=== PATIENT | male | born 1955 | race Caucasian/White ===

== ENCOUNTER → 2017-06-06 | Outpatient (CLI) | payer MEDICARE ==
--- NOTE | 2017-06-06 16:12 | KCIC ---
EXAM: Cervical spine MRI without contrast. HISTORY: Left upper extremity. TECHNIQUE: Multiplanar, multisequence magnetic resonance imaging of the cervical spine was performed without contrast. COMPARISON: None. FINDINGS: There is minimal retrolisthesis of C3 on C4, mild anterolisthesis of C4 on C5 and C7 on T1, and mild retrolisthesis of C5 on C6 and C6 on C7. There is degenerative endplate remodeling with disc space narrowing and osteophytosis primarily at C5-C6 and C6-C7. No spinal cord lesion is seen. The skull base and posterior fossa are unremarkable. There is mild diffusely decreased T1 marrow signal intensity. At C2-C3, there is moderate right facet arthropathy. There is minimal right foraminal stenosis. At C3-C4, there is a right posterior lateral predominant disc bulge and endplate osteophytosis. There is a right greater than left uncovertebral arthropathy. There is slight buckling of the ligamentum flavum. There is moderate right and mild left foraminal stenosis. At C4-C5, there is a left posterior lateral predominant disc bulge and endplate osteophytosis. There is marked to severe left and mild right facet arthropathy. There is left greater than right uncovertebral arthropathy. There is moderate to severe left foraminal stenosis. At C5-C6, there is a disc bulge and endplate osteophytosis. There is mild left facet arthropathy. There is bilateral uncovertebral arthropathy. There is buckling of the ligamentum flavum. There is moderate to severe right and severe left foraminal stenosis. At C6-C7, there is a disc bulge and endplate osteophytosis. There is bilateral uncovertebral arthropathy. There is mild bilateral foraminal stenosis. IMPRESSION: 1. Multilevel degenerative changes of the cervical spine, described in detail above. This results in suspected minimal right foraminal stenosis at C2-C3, moderate right and mild left foraminal stenosis at C3-C4, moderate to severe left foraminal stenosis at C4-C5, moderate to severe right and severe left foraminal stenosis at C5-C6, and mild bilateral foraminal stenosis at C6-C7. 2. Minimal and mild multilevel listhesis, degenerative in etiology. 3. Mild diffusely decreased T1 marrow signal intensity. This can be seen with etiologies such as anemia, a cigarette smoking history and obesity. This is not within limits to suggest a suspicious marrow infiltrative process. Electronically signed by: Cece Barbosa MD (06/06/2017 4:08 PM) [facility]
== END | disposition home or self-care (01) ==
LOC: KCIC MRI 15:19
PROVIDERS: ATTEND Physician Assistant Medical
DX: M48.02 Spinal stenosis, cervical region (principal); D64.9 Anemia, unspecified; E66.9 Obesity, unspecified; F17.210 Nicotine dependence, cigarettes, uncomplicated
CPT/HCPCS: 72141

== ENCOUNTER → 2019-12-29 | Outpatient (CLI) | payer MEDICARE, MEDICAID ==
--- NOTE | 2019-12-29 11:57 | KCIC ---
MRI Lumbar Spine without contrast History: Lumbar back pain, radiculopathy, shooting right hip and leg pain for 6 to 7 months Technique: Multiplanar, multi sequential noncontrast MR imaging was performed of the lumbar spine. Comparison: None Findings: There is some motion degradation. Lumbar vertebral body stature is mostly preserved other than small Schmorl's nodes such as superiorly of L3 and inferiorly of L1 and also at the L3-4 level. There is fairly advanced degenerative disc disease variably at L1-2, L2-3, L3-4, and L5-S1 and to lesser degree at L4-5. There is mild levoscoliosis centered near L3. There is very mild right lateral subluxation L2 relative to L3 and L1 relative to L2. There is variable endplate edema greatest at L1-2 and to lesser degree at L2-3 and L5-S1 likely reactive/degenerative in etiology. There is also edema associated with the right L2-3 facet articulation without associated defined fluid collection. 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 T12-L1: There is a small extrusion extending slightly above the intervertebral disc space about 2 to 3 mm AP without significant neural impingement or spinal stenosis. Neural foramina are adequate. L1-L2: There is disc osteophyte complex and bulge, also likely superimposed broad protrusion and possible component of shallow extrusion extending slightly below the intervertebral disc space up to about 4 mm AP. There is indentation upon the ventral thecal sac greater in the left lateral recess, moderate left lateral recess stenosis at and just below the intervertebral disc space with contact of the descending left L2 nerve root. There is mild buckling of the ligamentum flavum. There is mild posterior narrowing of the right neural foramen by facet, left neural foramen not significantly narrowed. L2-L3: There is mild prominence of posterior epidural fat centrally, mild buckling of the ligamentum flavum greater on the right, and fairly severe right facet degenerative change. There is minimal disc osteophyte complex and superimposed bulge. There is ivnq-qh-ezmbabhq narrowing of the far right lateral recess, very mild narrowing of the far left lateral recess. Left neural foramen is adequate. There is moderate to severe narrowing of the right neural foramen primarily from posteriorly by facet although also disc osteophyte complex inferiorly. L3-L4: There is disc osteophyte complex, mild indentation upon the ventral thecal sac somewhat greater in the right lateral recess. There is minimal buckling of the ligamentum flavum and right facet hypertrophic change. There is mild narrowing of the far lateral recesses bilaterally greater on the right. Left neural foramen is overall adequate. There is mild narrowing of the right neural foramen, disc osteophyte complex near the undersurface proximal extraforaminal right L3 nerve root without significant displacement. L4-L5: There is disc osteophyte complex and bulge, indentation upon the ventral thecal sac greatest centrally and in the left lateral recess. There is mild bilateral facet degenerative change. There is moderate narrowing of the far left lateral recess with contact of the descending left L5 nerve root, mild narrowing of the far right lateral recess. There is moderate to severe narrowing of the left neural foramen from facet and disc osteophyte complex. Right neural foramen is overall adequate. L5-S1: There is minimal disc osteophyte complex, near the ventral surfaces descending S1 nerve roots greater on the left without significant posterior displacement. Spinal canal is not significantly narrowed. There is moderate to severe narrowing of the left neural foramen by disc osteophyte complex and facet, disc osteophyte complex also contacting the extraforaminal left L5 nerve root. Right neural foramen is overall adequate. Impression: 1. There is multilevel lumbar degenerative disc disease, L4-5 least affected. There is variable endplate edema likely reactive/degenerative in etiology.. 2. There is multilevel variable lateral recess stenosis as described, moderate left lateral recess stenosis at L1-L2 and L4-5 and on the right at L2-3. 3. There is multilevel lumbar neural foramina compromise as stated, more significant narrowing on the right at L2-3 and on the left at L4-5 and L5-S1. 4. There is lumbar levoscoliosis. There is mild abnormal lateral alignment as stated. There is multilevel lumbar facet degenerative change. There is edema associated with the right L2-3 facet articulations at which there is severe facet degenerative change, may be reactive/degenerative in etiology. Electronically signed by: Damian Jimenez MD (12/29/2019 11:54 AM) [id number]
== END | disposition home or self-care (01) ==
LOC: KCIC MRI 10:23
PROVIDERS: ATTEND Physician Assistant
DX: M48.07 Spinal stenosis, lumbosacral region (principal); M25.78 Osteophyte, vertebrae; M51.37 Other intervertebral disc degeneration, lumbosacral region; M51.46 Schmorl's nodes, lumbar region; M99.13 Subluxation complex (vertebral) of lumbar region; M51.26 Other intervertebral disc displacement, lumbar region; M89.38 Hypertrophy of bone, other site; R60.9 Edema, unspecified; M41.56 Other secondary scoliosis, lumbar region
CPT/HCPCS: 72148

== ENCOUNTER → 2020-04-21 | Outpatient (CLI) | payer MEDICARE, MEDICAID ==
[~2020-04-21] MED LIST: REGADENOSON 0.4 MG/5 ML DISP.SYRIN. IV ONE
--- NOTE | 2020-04-21 14:37 | RAD ---
MR#: [id number] Date of Study: 04/21/2020 Ordering Physician: SONDRA BELCHER, Referring Physician: MIAN BROWNE Tech: RT Candida (R) (N) APPROVED REPORT Test Type: Pharmacological Stress Nurse/Tech: Citlalli Zazueta RN Test Indications: chronic/acute diastolic heart failure Cardiac History: COPD, SMOKER for 45 yrs, on anticoagulants for blood clot Medications: See Electronic Medical Record Medical History: See Electronic Medical Record Resting ECG: BBB, inverted T wave, tall pointed P wave Resting Heart Rate: 63 bpm Resting Blood Pressure: 134/96mmHg Pretest Chest Pain: No chest pain Nurse/Tech Notes S1S2, LS CLEAR Consent: The procedure was explained to the patient in lay terms. Informed consent was witnessed. Salvatore eout was entered into [facility]. History and Stress Test performed by Citlalli Zazueta RN Pharm. Details Pharmacologic stress testing was performed using 0.4mg per 5ml of regadenoson given intravenously ove r 7-10 seconds. Stress Symptoms Flushing, COUGHING, Dyspnea POST EXERCISE Reason for Termination: Infusion complete Max HR: 123 bpm Max Blood Pressure: 143/90mmHg Chest Pain: No. Arrhythmia: No. ST Change: No. INTERPRETATION Stress EKG Conclusion: The resting EKG shows a sinus rhythm and diffuse nonspecific ST segment change s with mild ST depression. The stress EKG shows no significant changes from baseline. Abnormal baseline EKG but no EKG evidence of stress-induced ischemia. Imaging Protocol IMAGE PROTOCOL: Rest Tc-99m/stress Tc-99m 1 day Rest: Stress: Viability: Radiopharm.Tc99m [id number] Sestamibi Dose10.6mCi 33mCi Duration 13min. 13min. Img Date 04/21/2020 04/21/2020 Inj-Img [id number]. 60min. Rest Admin Site:IV - Left ForearmAdministrator:RT Candida (R)(N) Stress Admin Site: IV - Left ForearmAdministrator: RT Antonio (R)(N) STRESS DATA End Diast. Vol.103.0mlAv. Heart Rate87.0bpm End Syst. Vol.39.0mlCO Index BSA0.0L/min Myocardial Mpqc246.0gEject. Mxpgthvb82.0% Stress Rates Pk. Fill Rate3.79EDV/secLVtime Pk. Fill 200.86msec Pk. Empty Rate4.11ESV/secLVtime Pk. Eject78.62msec 1/3 Pk. Fill1.20EDV/sec Stress Scores Regional WT0.00Summed WT11.00 Regional WM2.00Summed WM5.00 LV Perfusion The stress scans show a septal wall defect. The rest scans showed no significant defects. Nuclear imaging is consistent with reversible ischemia in the septal wall. Wall Motion Left ventricular systolic function is mildly decreased at 43% with a septal wall motion abnormality. LV Perf. Quant 17 Seg. SSS5.00 17 Seg. SRS0.00 17 Seg. SDS5.00 Stress Defect Extent (% LAD)10.00Rest Defect Extent (% LAD)0.00Rev. Defect Extent (% LAD)10.00 Stress Defect Extent (% LCX) 0.00Rest Defect Extent (% LCX)0.00Rev. Defect Extent (% LCX)0.00 Stress Defect Extent (% RCA)15.60Rest Defect Extent (% RCA)0.00Rev. Defect Extent (% RCA)15.60 Stress Defect Extent (% ROGERS)10.40Rest Defect Extent (% ROGERS)0.00Rev. Defect Extent (% ROGERS)10.40 Conclusion 1. Abnormal baseline EKG but no EKG evidence of stress-induced ischemia. 2. Nuclear stress imaging is consistent with reversible ischemia in the septal wall. 3. Mildly decreased ejection fraction of 43% with a mild septal wall motion abnormalities. 4. Moderate to moderately high risk test consistent with reversible ischemia in the septal wall and d ecreased ejection fraction. Signed by : Lukas Canchola MD Electronically Approved : 04/21/2020 14:37:13
== END ==
LOC: NM 08:37
PROVIDERS: ATTEND Internal Medicine Cardiovascular Disease
DX: I50.33 Acute on chronic diastolic (congestive) heart failure (principal)
CPT/HCPCS: 78452; 93017; A9500; J2785

== ENCOUNTER → 2020-04-24 | Outpatient (CLI) | payer MEDICARE, MEDICAID ==
[~2020-04-24] MED LIST changes: +APIX5TAB PO; +QUET25TA5 PO; -REGADENOSON 0.4 MG/5 ML DISP.SYRIN. IV ONE
--- NOTE | 2020-04-24 15:00 | KCIC ---
STUDY: MRI of the left shoulder without contrast INDICATION: Chronic shoulder pain. Decreased range of motion. Remote shoulder injury 15 years prior. COMPARISON: No prior MRI is available for review. TECHNIQUE: Multiplanar MR imaging of the left shoulder performed without the use of intravenous or intra-articular contrast. FINDINGS: Degraded study due to patient motion. AC joint: Moderate AC joint arthrosis. Trace fluid signal within the subacromial subdeltoid bursa. Rotator cuff: Limited evaluation due to motion. Supraspinatus more so than infraspinatus and subscapularis tendinosis. The supraspinatus is abnormally thinned at the footprint from the leading edge to the supraspinatus/infraspinatus junction favored mostly to represent intermediate grade tearing with involvement of around 50 percent cross-sectional tendon thickness. Potential higher grade thin interstitial tear at the posterior supraspinatus as seen on image 8 series 14. No high-grade infraspinatus tear. No significant rotator cuff muscular atrophy or fatty infiltration. Labrum: Multifocal degenerative labral signal/degenerative tearing. Long head biceps tendon: Abnormal signal and morphology in keeping with diffuse tendinosis. Though limited due to motion, there may be superimposed interstitial tearing of the extra-articular portion. Cartilage: Not well evaluated. Bones: Heterogeneous marrow signal most notably involving the visualized humeral shaft. Miscellaneous: Abnormal fluid distention of the long head biceps tendon sheath. No large shoulder joint effusion. A few mildly prominent but reactive-appearing axillary lymph nodes given the presence of fatty stephenie. Impression: 1. Supraspinatus more so than infraspinatus and subscapularis tendinosis. Superimposed mostly intermediate grade supraspinatus tearing (50% thickness) at the footprint from the leading edge to the infraspinous junction but with a possible higher-grade thin interstitial tear at the posterior supraspinatus (image 8 [id number]). No full-thickness tear is seen noting study degradation due to patient motion. Maintained muscular bulk and signal. 2. Multifocal degenerative labral signal/degenerative tearing. Diffuse long head biceps tendinosis and possible interstitial tearing of the extra articular portion. 3. Heterogeneous marrow signal that is not overtly pathologic but consider correlation with CBC to exclude a process such as anemia to account for this appearance. 4. Long head biceps tenosynovitis. 5. Moderate AC joint arthrosis. Electronically signed by: DERICK RAYMOND MD (04/24/2020 2:57 PM) [id number]
== END ==
LOC: KCIC MRI 10:57
PROVIDERS: ATTEND Physician Assistant
DX: M19.012 Primary osteoarthritis, left shoulder (principal); M75.102 Unspecified rotator cuff tear or rupture of left shoulder, not specified as traumatic; M65.812 Other synovitis and tenosynovitis, left shoulder
CPT/HCPCS: 73221

== ENCOUNTER → 2020-05-05 | Outpatient (CLI) | payer MEDICARE, MEDICAID | END | disposition home or self-care (01) | LOC: LAB 13:22 | PROVIDERS: ATTEND Internal Medicine Cardiovascular Disease | DX: Z11.59 Encounter for screening for other viral diseases (principal) | CPT/HCPCS: U0003-CS ==

== ENCOUNTER 2020-05-09 08:21 | Outpatient (CLI) | payer MEDICARE, MEDICAID ==
[~2020-05-09] VITALS: Ht 185.4 cm; Wt 79.4 kg
[2020-05-09] VITALS (10 sets, daily range): BP systolic 107–151; BP diastolic 67–102
[2020-05-09] MEDS ORDERED: APIX5TAB PO (09:29)
[2020-05-09] MEDS ORDERED: QUET25TA5 PO (09:29)
[2020-05-09 10:00] LABS: HEMATOCRIT 45.9 % (39.0-53.0); HEMOGLOBIN 15.8 g/dL (13.0-17.5); RED BLOOD COUNT 4.95 x10^6/uL (4.30-5.70); RED CELL DISTRIBUTION WIDTH 14.4 % (11.5-14.5); WHITE BLOOD COUNT 9.1 x10^3/uL (4.0-11.0)
[2020-05-09 10:07] LABS: CALCIUM 8.4 mg/dL (8.5-10.1); CREATININE 0.9 mg/dL (0.7-1.3); GFR 85.2; POTASSIUM 3.9 mmol/L (3.5-5.1)
[2020-05-09 10:09] LABS: PROTHROMBIN TIME PATIENT 13.4 SEC (11.7-14.0)
[2020-05-09] MEDS ORDERED: LIDOCAINE 1% PF 2 ML VIAL. ONE (10:31)
[2020-05-09] MEDS ORDERED: IOHEXOL 300 MG/ML 100ML VIAL. ONE ×2 (10:32→11:01)
[2020-05-09] MEDS ORDERED: LIDOCAINE 1% Multi-Dose 20 ML VIAL. ONE (11:06)
[2020-05-09] MEDS ORDERED: fentaNYL PF VIAL 100 MCG/2 ML VIAL ONE (11:08)
[2020-05-09] MEDS ORDERED: MIDAZOLAM HCL/PF 2 MG/2 ML VIAL. ONE (11:09)
[2020-05-09] MEDS ORDERED: fentaNYL PF VIAL 100 MCG/2 ML VIAL IV ONE (11:45)
[2020-05-09] MEDS ORDERED: IODIXANOL 320 MG/ML 100 ML VIAL. IART ONE (11:45)
[2020-05-09] MEDS ORDERED: MIDAZOLAM HCL/PF 2 MG/2 ML VIAL. IV ONE (11:45)
[2020-05-09] MEDS ORDERED: LIDOCAINE 1% Multi-Dose 20 ML VIAL. INJ ONE (11:45)
[2020-05-09] MEDS ORDERED: CONTRAST GIVEN. MC PRN (12:00)
[2020-05-09] MEDS ORDERED: IOHEXOL 300 MG/ML 100ML VIAL. IART ONE (12:15)
--- NOTE | 2020-05-09 12:56 | CARD ---
MR#: [id number] Date of Study: 05/09/2020 Ordering Physician: SONDRA BELCHER, Referring Physician: SONDRA BELCHER, Tech: GEETA KIRK RTR APPROVED REPORT Technologist: GEETA KIRK RTR Nurse: MANISHA HUSTON RN Procedure(s) performed: Right and left heart catheterization, selective coronary angiography and left ventriculography MODERATE SEDATION TIME: 50 MINUTES FLUORO TIME: 14.2 MIN DOSE: 81.9 GYCM2 CONTRAST: 146CC OMNI 300 INDICATION The indication(s) include : Refractory dyspnea on exertion and positive stress test. [facility] Clinical Frailty Scale [facility] Clinical Frailty Scale: Mildly Frail Heart Failure Heart Failure: Yes If Yes, Newly Diagnosed: No If Yes, HF Type: Diastolic If Yes, NYHA Class: Class II PROCEDURE NARRATIVE After explaining the risks, benefits and alternative options, informed consent was obtained from rachel ent. Patient was brought to the cardiac [employer] and his right groin was prepped and draped in the u sual fashion. 20 cc of 2% lidocaine was infiltrated into the skin and subcutaneous tissues for local anesthesia. Arterial and venous accesses were obtained in the right common femoral artery and vein respectively and 6 and 8 Malaysian sheaths inserted. A 7.5 Malaysian Drummond-Komal catheter was advanced under fluoroscopic guidance and intracardiac pressures and oxygen saturations were measured. Subsequently , 6 Malaysian JL 4 and 6 Malaysian JR4 catheters were used to perform selective angiography of the left and right coronary arteries. 6 Malaysian pigtail catheter was used to perform left ventriculography. Rachel ent tolerated the procedure well. Hemostasis in the right groin was achieved using Angio-Seal and ma nual compression. There were no immediate complications. FINDINGS A. RIGHT HEART CATHETERIZATION 1. Intracardiac pressures: Mean right atrial pressure 10 mmHg, right ventricular pressure 59/6 mmHg, pulmonary artery pressure 60/28 mmHg with mean PA pressure 43 mmHg and mean pulmonary capillary wedg e pressure 11 mmHg. This is consistent with moderate pulmonary hypertension. 2. Oxygen saturations: Right atrium 60.3, pulmonary artery 57.1 and femoral arterial sheath 91.6%. No evidence of intracardiac shunt. 3. Cardiac output by Klarissa method 3.2 L/min. B. LEFT HEART CATHETERIZATION 1. Hemodynamics: Left ventricular end-diastolic pressure 8 mmHg. No pullback gradient across the ao rtic valve. 2. Left ventriculography: Normal left ventricular systolic function with ejection fraction estimated at 55%. No significant mitral regurgitation seen. 3. Coronary angiography: a. The left anterior descending and left circumflex arteries appear to have a common origin from the left sinus of Valsalva without any left main coronary artery. b. The left anterior descending artery did not show any significant stenosis. c. The left circumflex artery did not show any significant stenosis. d. The right coronary artery was a large and dominant vessel arising from the right sinus of Valsalv a and did not show any significant stenosis. Conclusion 1. No significant coronary disease 2. Normal left ventricular systolic function with ejection fraction estimated at 55% 3. Moderate pulmonary hypertension 4. No evidence of intracardiac shunt Recommendations Medical Therapy Signed by : Sondra Belcher, Electronically Approved : 05/09/2020 12:56:06
--- NOTE | 2020-05-09 13:43 | CARD ---
MR#: [id number] Date of Study: 05/09/2020 Ordering Physician: SONDRA BELCHER, Referring Physician: SONDRA BELCHER Tech: Barbara Ren RDCS APPROVED REPORT EXAM: Two-dimensional and M-mode echocardiogram with Doppler and color Doppler. Other Information Quality : Good INDICATION Congestive Heart Failure 2D DIMENSIONS RVDd5.7 (2.9-3.5cm)Left Atrium(2D)3.8 (1.6-4.0cm) IVSd1.2 (0.7-1.1cm)Aortic Root(2D)3.6 (2.0-3.7cm) LVDd4.6 (3.9-5.9cm)LVOT Diameter2.2 (1.8-2.4cm) PWd1.3 (0.7-1.1cm)LVDs3.3 (2.5-4.0cm) FS (%) 27.2 %SV50.7 ml LVEF(%)53.0 (>50%) Aortic Valve AoV Peak Js.75.8cm/sAoV VTI13.6cm AO Peak GR.2.3mmHgLVOT Peak Js.59.6cm/s LVOT VTI 13.35cmAO Mean GR.2mmHg MOISES (VMAX)2.30jp4OBS (VTI)3.58cm2 Mitral Valve MV E Wynfkzlb60.6cm/sMV DECEL BDQA196od MV A Qsckeprl671.5cm/sMV EAH42lb E/A Ratio0.3MVA (PHT)6.96cm2 TDI E/Lateral E'2.2 Tricuspid Valve TR P. Vvtudone878ol/sRAP GABNPNUD5hxYx TR Peak Gr.72jnVpXPSR31miHj Pulmonary Vein S1 Rthrslub54.9cm/sD2 Xqhgnvop72.5cm/s LEFT VENTRICLE The left ventricle is normal size. There is mild concentric left ventricular hypertrophy. Left ventri faith systolic function is normal. The Ejection Fraction is 55%. Flattened interventricular septum cons istent with right ventricle volume and pressure overload. Transmitral Doppler flow pattern is Grade I -abnormal relaxation pattern. RIGHT VENTRICLE The right ventricle is severely dilated. Systolic function is severely reduced. ATRIA The left atrium size is normal. The right atrium is severely dilated. The interatrial septum is intac t with no evidence for an atrial septal defect or patent foramen ovale as noted on 2-D or Doppler linda ging. AORTIC VALVE The aortic valve is calcified but opens well. Doppler and Color Flow revealed no significant aortic r egurgitation. There is no significant aortic valvular stenosis. MITRAL VALVE The mitral valve is calcified but opens well. There is no evidence of mitral valve prolapse but the a nterior mitral valve leaflet is redundant. There is no mitral valve stenosis. Doppler and Color-flow revealed mild mitral regurgitation. TRICUSPID VALVE The tricuspid valve is normal in structure and function. Doppler and Color Flow revealed mild tricusp id regurgitation. There is severe pulmonary hypertension. The PA pressure was estimated at 80 mmHg. T here is no tricuspid valve stenosis. PULMONIC VALVE The pulmonic valve is not well visualized. Doppler and Color Flow revealed mild pulmonic valvular reg urgitation. There is no pulmonic valvular stenosis. GREAT VESSELS The aortic root is normal in size. The ascending aorta is normal in size. The IVC is normal in size a nd collapses >50% with inspiration. PERICARDIAL EFFUSION There is no evidence of significant pericardial effusion. Critical Notification Critical Value: No <Conclusion> Left ventricle systolic function is normal. The Ejection Fraction is 55%. Flattened interventricular septum consistent with right ventricle volume and pressure overload. Transmitral Doppler flow pattern is Grade I-abnormal relaxation pattern. The right atrium and ventricle are severely dilated. Mild mitral regurgitation. Mild tricuspid regurgitation. There is severe pulmonary hypertension. The PA pressure was estimated at 80 mmHg. There is no evidence of significant pericardial effusion. Signed by : Sondra Belcher, Electronically Approved : 05/09/2020 13:43:01
--- NOTE | 2020-05-09 13:44 | PDOC ---
MODERATE SEDATION ASSESSMENT RISKS/ALTERNATIVES Risks/Alternatives Risks and alternatives of this type of sedation and procedure discussed with: RISK/ALTERNATIVES: Patient H & P ON CHART H & P H & P on chart and reviewed for co-morbid conditions and appropriate labs. H&P ON CHART: Yes STATUS PREG STATUS ASSESSED: N/A MEDS/ALLERGIES REVIEWED Meds/Allergies Reviewed Medications and Allergies including time and route of recently administered narcotics and sedatives. MEDS/ALLERGIES REVIEWED: Yes ASA RATING ASA RATING: III AIRWAY ASSESSMENT Airway Assessment Airway patency, oral function limitations, presence of caps, crowns, dentures, partials, and ability to extend neck assessed. AIRWAY ASSESSMENT: Yes MALLAMPATI SCORE MALLAMPATI SCORE: II PRE-SEDATION ASSESSMENT PRE-SEDATION ASSESSMENT: Yes SONDRA BELCHER MD May 09, 2020 13:44
[2020-05-09] MEDS ORDERED: NITROGLYCERIN SUBLINGUAL 0.4 MG BOTTLE OF 25. SL PRN (13:45)
[2020-05-09] MEDS ORDERED: 0.9 % SODIUM CHLORIDE 10 ML DISP.SYRIN. IV PRN (13:45)
--- NOTE | 2020-05-09 15:14 | NUR ---
Discharge Note: VINEET DUNCAN Discharge instructions and discharge home medications reviewed with Patient and a copy given. All questions have been answered and understanding verbalized. The following instructions and handouts were given: smoking cessation, moderate sedation, groin site care Discontinued lines and drains: Allison tripp. Patient [facility] to [facility]
== END 2020-05-09 15:31 | disposition home or self-care (01) ==
LOC: ECHO 08:21
PROVIDERS: ATTEND Internal Medicine Cardiovascular Disease
DX: I08.8 Other rheumatic multiple valve diseases (principal); I50.33 Acute on chronic diastolic (congestive) heart failure; I27.20 Pulmonary hypertension, unspecified; R94.39 Abnormal result of other cardiovascular function study
CPT/HCPCS: 36415; 80048; 85027; 85610; 93306; 93460; C1760; C1769; C1773; C1892; G0269; J1644; J2250; J3010; J3490; Q9967; 99152; 99153; C1771